=== PATIENT | female | born 1980 | race Caucasian/White ===

== ENCOUNTER 2020-12-05 12:57 | Observation (INO) | payer BC, SELFPAY ==
[2020-12-05] VITALS (15 sets, daily range): BP systolic 145–190; BP diastolic 89–110; PULSE 76–105; RESP 11–20; TEMP 36.6–36.9; O2SAT 95–100; BMI 40.3
--- NOTE | 2020-12-05 | DI.MRI.S_ITS ---
PROCEDURE: MR STROKE Pre- and post-contrast brain MRI, non-contrast brain MR angiogram, pre- and postcontrast neck MR angiogram INDICATIONS: Left sided numbness TECHNIQUE: Brain: Noncontrast axial T1 spin echo, axial T2 fast spin echo, sagittal and axial FLAIR, coronal T2 fast spin echo, axial gradient echo, axial diffusion and ADC through the brain. After the administration of contrast, axial 3D VIBE of the cranial vasculature and brain. Brain MRA: Non-contrast 3-D time of flight MR angiogram, with multiple tutbqok-ekkzpzqdi-ixvdhqiddo (MIP) reformats performed. Neck MRA: Axial and sagittal TruFISP through the neck. Coronal dynamic MR angiogram during administration of contrast in the arterial and venous phases, with 3-dimenstional raekmvo-xgefhyezc-gtvfdnkpms (MIP) reformats constructed from subtraction images. COMPARISON: [facility], CT, CT ANGIO CHEST ABDOMEN PELVIS, 12/05/2020, 14:09. [facility], CT, CT HEAD/BRAIN WO CON, 12/05/2020, 14:09. FINDINGS: Image quality: Excellent. BRAIN: CSF spaces: Ventricles are normal in size and shape. Basal cisterns are patent. No extra-axial fluid collections. Brain: No intracranial bleeds or mass effects. Castro-white matter interface is normal. Diffusion weighted images show no acute ischemic insults. Brainstem appears normal. Normal intravascular flow voids are present. No abnormal intracranial enhancement. Skull and face: Calvarial marrow signal is normal. Orbits appear normal. Sinuses: Sinuses and mastoids are clear. BRAIN MR ANGIOGRAM: Anterior circulation: Intracranial internal carotid arteries are normal in size and enhancement. The flow within the paired anterior cerebral arteries is normal and symmetric. The flow within the middle cerebral arteries is normal and symmetric. The anterior communicating artery is seen. No stenoses, occlusions, or aneurysms. Posterior circulation: The visualized portions of the vertebral arteries demonstrate normal caliber, and join to form a normal appearing basilar artery. The flow within the posterior cerebral arteries is normal and symmetric. No stenoses, occlusions, or aneurysms. NECK MR ANGIOGRAM: Carotids: Great vessels demonstrate a conventional anatomy as they arise from the aortic arch. The origins of the common carotid arteries appear patent. The calibers and courses of both common carotid arteries are normal. The bifurcation regions appear normal bilaterally. The internal carotid arteries demonstrate normal course and caliber. Posterior circulation: The origins of the vertebral arteries appear patent. More superior portions of both vertebral arteries demonstrate normal course and caliber, and join to form a normal appearing basilar artery. Miscellaneous: Subclavian arteries appear patent. Pre-contrast images through the neck show no soft tissue abnormalities. IMPRESSION: BRAIN MRI: Unremarkable. No evidence of acute stroke, hemorrhage, or mass. Normal brain parenchyma. BRAIN MR ANGIOGRAM: Unremarkable. No stenosis, aneurysm, or occlusion. NECK MR ANGIOGRAM: Unremarkable. Widely patent carotids. Dictated by: Torsten Peter M.D. on 12/05/2020 at 17:30 Approved by: Torsten Peter M.D. on 12/05/2020 at 17:34
--- NOTE | 2020-12-05 13:04 | DI.RAD.S_ITS ---
PROCEDURE: XR CHEST 1V INDICATIONS: chest pain TECHNIQUE: One view of the chest was acquired. COMPARISON: None. FINDINGS: Surgical changes and devices: None. Lungs and pleura: Lungs are clear. No pleural effusions or pneumothorax. Mediastinum: Mediastinal contours appear normal. Heart size is normal. Bones and chest wall: No suspicious bony lesions. Overlying soft tissues appear unremarkable. IMPRESSION: No acute cardiopulmonary disease. Dictated by: Cindy Retana M.D. on 12/05/2020 at 13:31 Approved by: Cindy Retana M.D. on 12/05/2020 at 13:31
[2020-12-05 13:35] LABS: Add Manual Diff / Slide Review NO; Basophils Absolute Auto 0 /uL (0-100); Basophils Percent Auto 0.6 % (0-2); Eosinophils Absolute Auto 200 /uL (0-450); Eosinophils Percent Auto 2.4 % (2-4); Hematocrit 42.7 % (36-46); Hemoglobin 14.2 g/dL (12.0-16.0); Lymphocytes Absolute Auto 2000 /uL (1100-4500); Lymphocytes Percent Auto 28.1 % (25-40); Mean Corpuscular HGB Conc 33.3 % (30-36); Mean Corpuscular Hemoglobin 28.7 PG (26-34); Mean Corpuscular Volume 86.3 fL (80-100); Monocytes Absolute Auto 600 /uL (0-900); Monocytes Percent Auto 8.6 % (3-14); Neutrophils Absolute Auto 4400 /uL (1500-7000); Neutrophils Percent Auto 60.3 % (50-75); Platelet Count 349 X10^3/uL (150-400); Red Blood Cell Count 4.94 X10^6/uL (4.0-5.2); Red Cell Distribution Width 13.3 % (11.6-14.8); White Blood Cell Count 7.3 X10^3/uL (4.5-11.0)
[2020-12-05 13:41] LABS: Prothrombin Time 10.8 SECONDS (10.1-12.7)
[2020-12-05 13:44] LABS: PTT Partial Thromboplastin Tim 33 SECONDS (26.4-36.2)
[2020-12-05 13:46] LABS: Alanine Aminotransferase 33 IU/L (<35); Albumin 4.8 g/dL (3.5-5.0); Albumin Globulin Ratio 1.3 (1.0-2.8); Alkaline Phosphatase 87 U/L (38-126); Aspartate Aminotransferase 41 IU/L (14-36); BUN Creatinine Ratio 12.5 (6-22); Bilirubin Total 0.8 mg/dL (0.2-1.3); Blood Urea Nitrogen 9 mg/dL (7-17); Calcium 9.9 mg/dL (8.4-10.2); Carbon Dioxide 26 mmol/L (22-32); Chloride 103 mmol/L (98-107); Creatine Kinase 149 U/L (30-135); Estimated Glomerular Filt Rate > 60.0 mL/min (>60); Globulin 3.7 g/dL (1.7-4.1); Glucose 97 mg/dL (70-100); HEMOLYSIS < 15 (0-50); Lipase 111 U/L (23-300); Potassium 3.7 mmol/L (3.4-5.1); Sodium 137 mmol/L (137-145); Total Protein 8.5 g/dL (6.3-8.2)
--- NOTE | 2020-12-05 13:51 | ED_ITS ---
HPI - Chest Pain General Chief Complaint: Chest Pain Stated Complaint: LEFT SIDE NUMBNESS CHEST PAIN Time Seen by Provider: 12/05/20 13:20 Source: patient Mode of arrival: Ambulatory Limitations: no limitations History of Present Illness HPI narrative: 40-year-old female smoker with newly diagnosed hypertension pres ents with a chief complaint of left-sided numbness and tingling over the past few days. She states that started in the palm of her left hand and then by the end of the day on Friday and reached her left shoulder and by the next day her entire left side was numb and tingling. She denies any weakness or pain. She denies any injury or history of the same. She denies any headache or blurred vision or trouble with speech, balance or ambulation. She states that earlier today she developed some central chest pressure and heaviness. She denies any obvious provocation, palliation or radiation of the symptoms. She worked out pretty heavy this morning and denies any exertional symptoms. She denies fever chills, shortness of breath, fatigue, nausea or vomiting. MD complaint: chest pain Onset (ago): hour(s) Duration: constant Onset: during rest Pain location: substernal Severity: moderate Quality: tightness and aching Pain radiation: none Relieving factors: nothing Treatments prior to arrival chest pain: none Related Data On Oral Contraceptives: No Allergies Allergy/AdvReac Type Severity Reaction Status Date / Time No Known Drug Allergies Allergy Verified 12/05/20 13:03 Review of Systems Constitutional Constitutional: Denies chills, Denies fatigue, Denies fever(s), Denies frequent falls, Denies lethargy and Denies weakness Eyes Eyes: Denies change in vision, Denies eye discharge, Denies irritation and Denies loss of vision ENT Ears, Nose, Mouth, and Throat: Denies change in voice, Denies dizziness, Denies neck pain, Denies sore throat and Denies throat swelling Cardiovascular Cardiovascular: Reports chest pain, Denies irregular heart rhythm, Denies lightheadedness, Denies palpitations, Denies dyspnea, Denies dyspnea on exertion and Denies orthopnea Respiratory Respiratory: Denies cough, Denies dyspnea, Denies dyspnea on exertion and Denies wheezing Gastrointestinal Gastrointestinal: Denies abdominal pain, Denies change in bowel habits, Denies diarrhea, Denies nausea and Denies vomiting Musculoskeletal Musculoskeletal: Denies neck pain and Denies numbness Integumentary/Breasts Skin/Breast: Denies pruritus, Denies erythema, Denies rash and Denies wounds Neurologic Neurologic: Denies behavioral changes, Denies confusion, Denies dizziness, Denies frequent falls, Denies loss of vision, Denies numbness, Reports sensory deficit and Denies weakness Psychiatric Psychiatric: Denies anxiety, Denies behavioral changes, Denies confusion, Denies depression, Denies homicidal ideation and Denies suicidal ideation Endocrine Endocrine: Denies fatigue, Denies flushing and Denies palpitations Hematologic/Lymphatic Hematologic/Lymphatic: Denies easy bruising Allergic/Immunologic Allergic/Immunologic: Denies urticaria, Denies throat swelling and Denies wheezing Patient History Social History Smoking Status: Current every day smoker Smoking Status: Current every day smoker alcohol intake frequency: 0-2 drinks per day Substance Use Type: does not use Exam Narrative Exam Narrative: GENERAL: [40] year old patient appears stated age. Well- nourished, well-developed patient, in mild distress. HEAD: Atraumatic. Normocephalic. EYES: Pupils equal round and reactive. Extraocular motions intact. No scleral icterus. No injection or drainage. ENT: Nose without bleeding, purulent drainage. Throat without erythema, tonsillar hypertrophy or exudate. Airway patent. NECK: Trachea midline. Non tender CARDIOVASCULAR: Regular rate and rhythm without murmurs, gallops, or rubs. RESPIRATORY: Clear to auscultation. Breath sounds equal bilaterally. No wheezes, rales, or rhonchi. GASTROINTESTINAL: Abdomen soft, non-tender, nondistended. EXTREMITIES: No edema or joint tenderness. BACK: Nontender without deformity or crepitance. No flank tenderness. NEURO: AOx3. SKIN: No rash or erythema of visible areas Initial Vital Signs Initial Vital Signs: Vital Signs Temperature 97.8 F 12/05/20 12:59 Pulse Rate 105 H 12/05/20 12:59 Respiratory Rate 18 12/05/20 12:59 Blood Pressure 190/110 H 12/05/20 12:59 Pulse Oximetry 99 12/05/20 12:59 Scores HEART Score Heart Score history: Moderately Suspicious Heart Score EKG: Non-Specific repolarization disturbance Heart Score Age: < 45 years old Heart Score risk factors: 1-2 risk factors Heart Score troponin: < or = to normal limit Heart Score Total: 3 NIH Stroke Scale Level of Conciousness: Alert, keenly responsive Ask month/age: Answers both questions correctly. Open/close eyes, close hand: Performs both tasks correctly Best gaze horizontal: Normal Visual garcia: No visual loss Facial palsy: Normal symetrical movement Left arm drift: No drift for full 10 sec Right arm drift: No drift for full 10 sec Left leg drift: No drift for full 5 sec Right leg drift: No drift for full 5 sec Limb ataxia: Absent Sensory on face/arms/legs: Mild to moderate sensory loss, can tell touch Best language: No aphasia, normal Dysarthria: Normal Extinction or inattention: No abnormality Total NIH Stroke scale score: 1 Course Orders Ordered: ED Orders 12/05/20 13:04 XR chest 1V Stat EKG-12 Lead Stat 12/05/20 13:10 Complete Blood Count AUTO DIFF Stat Comprehensive Metabolic Panel Stat Lipase Stat Partial Thromboplastin Time Stat Prothrombin Time INR Stat Troponin & CK Cardiac Panel Stat 12/05/20 13:53 CT head/brain wo con Stat 12/05/20 13:59 CT angio chest abdomen pelvis Stat 12/05/20 15:30 EKG-12 Lead Stat 12/05/20 15:37 Troponin I Stat 12/05/20 16:15 COVID19 - ADMIT (PURCHASING MANAGER swab/PCR) Stat Nitroglycerin (Nitroglycerin 0.4 Mg Sl Tab) 0.4 mg SL [id number] PRN PRN Reason: Chest Pain Last Admin: 12/05/20 15:50 Dose: 0.4 mg Documented by: Admin: 12/05/20 15:32 Dose: 0.4 mg Documented by: DION Discontinued Medications Aspirin (Aspirin 81 Mg Chew Tab) 324 mg PO NOW ONE Stop: 12/05/20 16:16 Last Admin: 12/05/20 16:30 Dose: 324 mg Documented by: Reevaluation(s) Reevaluation #1: Chest pain gone after 3rd nitro Consultations Consultation #1: Discussed case with on-call Cardiology, T-wave inversion in lead 3 can be a normal variant, however given risk factor, heart score, resolution with nitro patient requires hospitalization for further evaluation including echo and stress test. Vital Signs Vital signs: Vital Signs - 8 hr 12/05/20 12:59 12/05/20 14:33 12/05/20 14:34 Temperature 97.8 F Pulse Rate 105 H 91 H 90 Respiratory Rate 18 Blood Pressure 190/110 H 153/100 H Pulse Oximetry 99 97 96 12/05/20 15:00 12/05/20 15:30 12/05/20 15:32 Temperature Pulse Rate 83 85 86 Respiratory Rate Blood Pressure 150/95 H 158/99 H 158/99 H Pulse Oximetry 98 98 12/05/20 15:40 12/05/20 15:50 12/05/20 16:00 Temperature Pulse Rate 96 H 82 95 H Respiratory Rate 11 L 16 13 Blood Pressure 151/91 H 146/93 H 145/92 H Pulse Oximetry 95 99 96 MDM - Chest Pain Lab Data Result diagrams: 12/05/20 13:10 12/05/20 13:10 Labs: Lab Results 12/05/20 12/05/20 12/05/20 Range/Units 13:10 13:10 13:10 WBC 7.3 (4.5-11.0) X10^3/uL RBC 4.94 (4.0-5.2) X10^6/uL Hgb 14.2 (12.0-16.0) g/dL Hct 42.7 (36-46) % MCV 86.3 (80-100) fL MCH 28.7 (26-34) PG MCHC 33.3 (30-36) % RDW 13.3 (11.6-14.8) % Plt Count 349 (150-400) X10^3/uL Neut % (Auto) 60.3 (50-75) % Lymph % (Auto) 28.1 (25-40) % [place] % (Auto) 8.6 (3-14) % Eos % (Auto) 2.4 (2-4) % Baso % (Auto) 0.6 (0-2) % Neut # (Auto) 4400 (5160-3043) /uL Lymph # (Auto) 2000 (3529-3850) /uL [place] # (Auto) 600 (0-900) /uL Eos # (Auto) 200 (0-450) /uL Baso # (Auto) 0 (0-100) /uL PT 10.8 (10.1-12.7) SECONDS INR 1.0 (0.9-1.3) APTT 33 (26.4-36.2) SECONDS Sodium 137 (137-145) mmol/L Potassium 3.7 (3.4-5.1) mmol/L Chloride 103 (98-107) mmol/L Carbon Dioxide 26 (22-32) mmol/L BUN 9 (7-17) mg/dL Creatinine 0.72 (0.52-1.04) mg/dL Estimated GFR > 60.0 (>60) mL/min BUN/Creatinine Ratio 12.5 (6-22) Glucose 97 (70-100) mg/dL Calcium 9.9 (8.4-10.2) mg/dL Total Bilirubin 0.8 (0.2-1.3) mg/dL AST 41 H (14-36) IU/L ALT 33 (<35) IU/L Alkaline Phosphatase 87 (38-126) U/L Total Creatine Kinase 149 H (30-135) U/L CK-MB (CK-2) 0.62 (<2.37) ng/mL CK-MB (CK-2) Rel Index 0.4 L (1.5-5.0) % Troponin I < 0.012 (0.01-0.034) ng/mL Total Protein 8.5 H (6.3-8.2) g/dL Albumin 4.8 (3.5-5.0) g/dL Globulin 3.7 (1.7-4.1) g/dL Albumin/Globulin Ratio 1.3 (1.0-2.8) Lipase 111 (23-300) U/L // Range/Units 15:37 WBC (4.5-11.0) X10^3/uL RBC (4.0-5.2) X10^6/uL Hgb (12.0-16.0) g/dL Hct (36-46) % MCV (80-100) fL MCH (26-34) PG MCHC (30-36) % RDW (11.6-14.8) % Plt Count (150-400) X10^3/uL Neut % (Auto) (50-75) % Lymph % (Auto) (25-40) % [place] % (Auto) (3-14) % Eos % (Auto) (2-4) % Baso % (Auto) (0-2) % Neut # (Auto) (9400-2821) /uL Lymph # (Auto) (2767-0572) /uL [place] # (Auto) (0-900) /uL Eos # (Auto) (0-450) /uL Baso # (Auto) (0-100) /uL PT (10.1-12.7) SECONDS INR (0.9-1.3) APTT (26.4-36.2) SECONDS Sodium (137-145) mmol/L Potassium (3.4-5.1) mmol/L Chloride (98-107) mmol/L Carbon Dioxide (22-32) mmol/L BUN (7-17) mg/dL Creatinine (0.52-1.04) mg/dL Estimated GFR (>60) mL/min BUN/Creatinine Ratio (6-22) Glucose (70-100) mg/dL Calcium (8.4-10.2) mg/dL Total Bilirubin (0.2-1.3) mg/dL AST (14-36) IU/L ALT (<35) IU/L Alkaline Phosphatase (38-126) U/L Total Creatine Kinase (30-135) U/L CK-MB (CK-2) (<2.37) ng/mL CK-MB (CK-2) Rel Index (1.5-5.0) % Troponin I < 0.012 (0.01-0.034) ng/mL Total Protein (6.3-8.2) g/dL Albumin (3.5-5.0) g/dL Globulin (1.7-4.1) g/dL Albumin/Globulin Ratio (1.0-2.8) Lipase (23-300) U/L Imaging Data CT scan - head: Radiologist's Impression: [address] [id number] Scan ReportSigned Patient: Radha Chu KMR#: [id number]: 1980Acct:[id number]/Sex: 40 / FDate of Service: 12/05/20Loc: EDAccession Number: [id number] Procedure: CT head/brain wo con Ordering Provider: Bijan Wood D.O. PROCEDURE: CT HEAD/BRAIN WO CON INDICATIONS: left side numbness TECHNIQUE: Noncontrast 4.5 mm thick angled axial sections acquired from the foramen magnum to the vertex, with coronal and sagittal reformats. For radiation dose reduction, the following was used: automated exposure control, adjustment of mA and/or kV according to patient size. COMPARISON: None. FINDINGS: Image quality: Excellent. CSF spaces: Basal cisterns are patent. No extra-axial fluid collections. Ventricles are normal in size and shape. Brain: No midline shift. No intracranial masses or hemorrhage. Castro-white matter interface is normal. Skull and face: Calvarium and visualized facial bones are intact, without suspicious lesions. Sinuses: Visualized sinuses and mastoids are clear. IMPRESSION: 1. No acute intracranial abnormalities. Dictated by: Cindy Retana M.D. on 12/05/2020 at 14:39 Approved by: Cindy Retana M.D. on 12/05/2020 at 14:40 CT scan - chest: Radiologist's Impression: 46 Bijan Wood DO Find Patient Imaging - Radha Chu Jatinder 40 F 1980 ACTIVITY DATE EXAM STATUS AUTHOR 12/05/20 13:59 Signed Fred Pavon 12/05/20 13:53 Signed Jinny Retana 12/05/20 13:04 Signed Jinny Retana [address] [id number] Scan ReportSigned Patient: Radha Chu KMR#: [id number]: 1980Acct:[id number]/Sex: 40 / FDate of Service: 12/05/20Loc: EDAccession Number: [id number] Procedure: CT angio chest abdomen pelvis Ordering Provider: Bijan Wood D.O. PROCEDURE: CT ANGIO CHEST ABDOMEN PELVIS INDICATIONS: back pain TECHNIQUE: Precontrast 5 mm thick sections acquired from the lung apices to the iliac crests. After the administration of intravenous contrast, 2.5 mm thick sections again acquired from the lung apices to the iliac crests. Maximum intensity projection (MIP) oblique sag ittal and coronal reformats were then acquired. For radiation dose reduction, the following was used: automated exposure control. COMPARISON: [facility], CR, XR CHEST 1V, 12/05/2020, 13:20. FINDINGS: Image quality: Good. AORTA: No acute aortic syndrome. No dissection. No aneurysm. CHEST: Lungs and pleura: Subtle bilateral ground-glass opacity. No pleural effusions or pneumothorax. Central and peripheral airways are patent and normal in caliber. Mediastinum: Heart size is normal. No pericardial effusion. No mediastinal or hilar adenopathy by size criteria. Central pulmonary arteries are normal in size. Esophagus is normal in caliber. No hiatal hernias. Bones and chest wall: No axillary adenopathy by size criteria. Thyroid gland is unremarkable. No suspicious bony lesions. No vertebral body compression fractures. ABDOMEN: Vasculature: Celiac trunk and mesenteric arteries are patent. Renal arteries are also patent. Solid organs: Liver is normal in size and enhancement. Gallbladder is unremarkable. Biliary system is non dilated. Pancreas enhances normally. Spleen is normal in size and enhancement. No adrenal nodules. Both kidneys are normal in size and enhancement, without hydronephrosis. Peritoneum and bowel: No free fluid or air. Bowel loops are normal in caliber and wall thickness. Normal appendix. Nodes and vessels: No retroperitoneal or mesenteric adenopathy by size criteria. Inferior vena cava is normal in morphology. Miscellaneous: Tiny fat containing periumbilical hernia. PELVIS: Genitourinary: Bladder wall thickness is normal. IUD centered in the pelvis. Miscellaneous: No inguinal hernias or adenopathy. No ventral hernias. Bones: No suspicious bony lesions. No vertebral body compression fractures. IMPRESSION: 1. No acute aortic syndrome. No dissection. No aneurysm. 2. The subtle ground-glass airspace opacity bilaterally. Portion of this opacity could be due to respiratory motion. This raises the possibility of infectious/inflammatory etiology. This could be due to atelectasis. 3. No free fluid in the abdomen or pelvis. Dictated by: Fred Pavon M.D. on 12/05/2020 at 15:22 Approved by: Fred Pavon M.D. on 12/05/2020 at 15:32 Discharge Plan Departure Admit Date/Time: 12/05/20 16:24 Admit Provider: Fredis Carballo
[2020-12-05 13:58] LABS: Troponin I < 0.012 ng/mL (0.01-0.034)
--- NOTE | 2020-12-05 13:59 | DI.CT.S_ITS ---
PROCEDURE: CT ANGIO CHEST ABDOMEN PELVIS INDICATIONS: back pain TECHNIQUE: Precontrast 5 mm thick sections acquired from the lung apices to the iliac crests. After the administration of intravenous contrast, 2.5 mm thick sections again acquired from the lung apices to the iliac crests. Maximum intensity projection (MIP) oblique sagittal and coronal reformats were then acquired. For radiation dose reduction, the following was used: automated exposure control. COMPARISON: [facility], CR, XR CHEST 1V, 12/05/2020, 13:20. FINDINGS: Image quality: Good. AORTA: No acute aortic syndrome. No dissection. No aneurysm. CHEST: Lungs and pleura: Subtle bilateral ground-glass opacity. No pleural effusions or pneumothorax. Central and peripheral airways are patent and normal in caliber. Mediastinum: Heart size is normal. No pericardial effusion. No mediastinal or hilar adenopathy by size criteria. Central pulmonary arteries are normal in size. Esophagus is normal in caliber. No hiatal hernias. Bones and chest wall: No axillary adenopathy by size criteria. Thyroid gland is unremarkable. No suspicious bony lesions. No vertebral body compression fractures. ABDOMEN: Vasculature: Celiac trunk and mesenteric arteries are patent. Renal arteries are also patent. Solid organs: Liver is normal in size and enhancement. Gallbladder is unremarkable. Biliary system is non dilated. Pancreas enhances normally. Spleen is normal in size and enhancement. No adrenal nodules. Both kidneys are normal in size and enhancement, without hydronephrosis. Peritoneum and bowel: No free fluid or air. Bowel loops are normal in caliber and wall thickness. Normal appendix. Nodes and vessels: No retroperitoneal or mesenteric adenopathy by size criteria. Inferior vena cava is normal in morphology. Miscellaneous: Tiny fat containing periumbilical hernia. PELVIS: Genitourinary: Bladder wall thickness is normal. IUD centered in the pelvis. Miscellaneous: No inguinal hernias or adenopathy. No ventral hernias. Bones: No suspicious bony lesions. No vertebral body compression fractures. IMPRESSION: 1. No acute aortic syndrome. No dissection. No aneurysm. 2. The subtle ground-glass airspace opacity bilaterally. Portion of this opacity could be due to respiratory motion. This raises the possibility of infectious/inflammatory etiology. This could be due to atelectasis. 3. No free fluid in the abdomen or pelvis. Dictated by: Fred Pavon M.D. on 12/05/2020 at 15:22 Approved by: Fred Pavon M.D. on 12/05/2020 at 15:32
[2020-12-05 14:01] LABS: CKMB % Relative Index 0.4 % (1.5-5.0); Creatine Kinase MB 0.62 ng/mL (<2.37)
--- NOTE | 2020-12-05 15:26 | PC.NURSE ---
Pt is also c/o L sided numbness to her whole body. States she can feel pressure but not temperature or sharp sensations.
[2020-12-05] MEDS: NITROGLYCERIN 0.4 MG SL TAB SL ×2 (15:32→15:50)
--- NOTE | 2020-12-05 16:05 | PC.NURSE ---
Pt states that her CP is gone and only feels a slight pressure now. BP stable. Does have an intense headache. Will stop the nitro at 2 tabs. informed.
[2020-12-05 16:14] LABS: Troponin I < 0.012 ng/mL (0.01-0.034)
[2020-12-05] MEDS: ASPIRIN 81 MG CHEW TAB 324 MG PO (16:30)
--- NOTE | 2020-12-05 16:36 | DI.ECHO.S_ITS ---
[facility] +---------+ : : [address] : : : : [id number] : : : : Phone: [phone]+ Echocardiogram Report + + :Name: ARTURO OLVERA Study Date: 12/06/2020 Height: 64 in : :[facility] ReadingLocation: Weight: 235 lb : : Gender: Female BSA: 2.1 m2 : :: 1980 Age: 40 yrs BP: 136/81 mmHg: :Reason For Study: CHEST PAIN, POSSIBLE TIA/CVA : :Ordering Physician: GRAYSON, : :EPIFANIO JACKSON Performed By: Cherri Domínguez : :Referring: EPIFANIO GALICIA : + + Interpretation Summary 1) Normal left ventricular thickness, size, wall motion, and systolic function (EF 60-65%). 2) Mildly enlarged right ventricular size with normal function. 3) No significant valvular abnormalities. 4) Injection of contrast documented no interatrial shunt. 5) No prior Echo available for comparison. Procedure: A two-dimensional transthoracic echocardiogram with color flow and Doppler was performed. The study quality was technically adequate. There is no prior echocardiogram noted for this patient. The patient was in sinus rhythm with heart rates between 60-76 bpm during the exam. Left Ventricle: The left ventricle is normal in size. There is normal left ventricular wall thickness. Proximal septal thickening is noted. The ejection fraction is estimated to be 60-65%. Left ventricular wall motion is normal. Right Ventricle: The right ventricle is mildly dilated. The right ventricular systolic function is normal. Atria: The left atrial size is normal. Right atrial size is normal. There is no Doppler evidence for an interatrial shunt. Injection of contrast documented no interatrial shunt. Mitral Valve: The mitral valve is normal in structure and function. There is trace mitral regurgitation. Aortic Valve: The aortic valve opens well. There is no aortic valve stenosis. No aortic regurgitation is present. Tricuspid Valve: The tricuspid valve is normal in structure and function. There is mild tricuspid regurgitation. The right ventricular systolic pressure is estimated to be at least 23 mmHg based on an estimated right atrial pressure of 3 mm Hg. Pulmonic Valve: The pulmonic valve is not well visualized. There is no pulmonic valvular regurgitation. Great Vessels: The aortic root is normal size. The dimensions of the ascending aorta are normal. The IVC is of normal diameter and collapses greater than 50% with a sniff. This suggests a low right atrial pressure of 3 mm Hg. Pericardium/ Pleura There is no pericardial effusion. There is no pleural effusion. MMode/2D Measurements & Calculations LVIDd: 4.8 cm LVOT diam: 1.9 cm LVIDs: 3.4 cm Ao root diam: 3.2 cm FS: 28.6 % asc Aorta Diam: 3.2 cm EPSS: 0.55 cm Ao Arch Diam (Prox Trans): 2.6 cm IVSd: 1.2 cm LVPWd: 0.75 cm LV anne. diameter/BSA (cm/m^2): 2.3 LV sys. diameter/BSA (cm/m^2): 1.6 LA A2 area: 20.5 cm2 RA long axis: 5.3 cm LA A4 area: 17.7 cm2 RA area: 14.7 cm2 LA length (vol): 5.8 cm RA vol: 34.7 ml LA vol: 53.5 ml RA : 16.5 ml/m2 LA vol index: 25.5 ml/m2 IVC diam: 1.9 cm RVD1 (basal): 3.6 cm TAPSE: 1.8 cm Doppler Measurements & Calculations Ao V2 max: 116.0 cm/sec LVOT Max Ganesh: 89.6 cm/sec Ao V2 mean: 82.8 cm/sec LV V1 max P.2 mmHg Ao max P.4 mmHg LV V1 VTI: 19.4 cm Ao mean P.0 mmHg PATRICK(I,D): 2.2 cm2 Ao V2 VTI: 24.9 cm PATRICK(V,D): 2.1 cm2 sev ratio: 0.78 PATRICK indexed to BSA (cm^2/m^2): 1.0 MV E max ganesh: 65.0 cm/sec TR max ganesh: 223.4 cm/sec MV A max ganesh: 48.1 cm/sec TR max P.0 mmHg MV E/A: 1.4 PA V2 max: 69.9 cm/sec Med Peak E' Ganesh: 7.4 cm/sec PA V2 mean: 46.1 cm/sec E/E' med: 8.7 PA mean P.97 mmHg Lat Peak E' Ganesh: 12.3 cm/sec PA pr(Accel): 37.9 mmHg E/E' lat: 5.3 E/e' average: 7.0 MV dec time: 0.17 sec SV(LVOT): 53.8 ml Reading Physician:10:48 AM
[2020-12-05 17:51] LABS: COVID19 - ADMIT (NP swab/PCR) Negative (Negative)
--- NOTE | 2020-12-05 17:55 | P.HP_ITS ---
History of Present Illness History of Present Illness Date Patient Seen: 12/05/20 Time Patient Seen: 17:55 Chief complaint: LEFT SIDE NUMBNESS CHEST PAIN Narrative: This is a 40-year-old female with a past history of tobacco use (0.5 ppd x 25 years) and anxiety who presented with left-sided numbness and chest pain. Patient states that she had left-sided numbness starting a couple of days ago. It started in the palm of her hand and then traveled up her arm. She reports decreased sensation and tingling. The following day it involved her entire left side including her chest and back as well as her legs. She notes it improves at the midline. She reports no pain, no trauma and no weakness. She denies any palpitations, headache, vision changes, fevers, chills, slurred speech, falls, dizziness, urinary or bladder incontinence, nausea, vomiting, diaphoresis. Starting at around 1:00 p.m. today she developed a substernal chest pressure, 3 to 4/10, with later migration into her upper chest and neck. This resolved with nitroglycerin in the emergency room. She actually did a a heavy workout this morning and denies any exertional symptoms or chest pain. She has no orthopnea, lower extremity edema. Nothing seems to make her symptoms better or worse other than the nitro in the ER for chest pain. In the emergency room, the patient was hypertensive with a blood pressure of 190/110, this improved without medications to the 140s systolic. She was bord mirna tachycardic but the remainder of her vital signs were unremarkable. Initial CBC was unremarkable, she had normal coagulation studies, CMP showed a mild elevation in AST at 41, and mildly elevated CK at 149, but was otherwise unremarkable including a negative troponin and normal TSH at 1.3. COVID-[address] was unremarkable. Chest x-ray was unremarkable. CT angiogram of her chest and abdomen pelvis showed no acute abnormalities. EKG showed nonspecific T-wave inversion in leads III and AVF. Prior to arrival on the floor patient went for her MRI stroke protocol which also showed no acute abnormalities. Patient History Medical History (Updated 12/05/20 @ 18:08 by Fredis Carballo DO) Anxiety Surgical History (Updated 12/05/20 @ 18:08 by Fredis Carballo DO) H/O shoulder surgery Family & Social History Family History (Updated 12/05/20 @ 18:08 by Fredis Carballo DO) Father Hyperlipidemia Hypertension Mother Hyperlipidemia Hypertension Safety & Behavioral: Feels Safe in Current Yes Environment Been Physically Hurt or No Threatened By a Person Tobacco & Substance use: Smoking Status Current every day smoker alcohol intake frequency 0-2 drinks per day Substance Use Type does not use Meds Home Medications and Allergies Home Medications Medication Instructions Recorded Confirmed Type duloxetine 40 mg PO DAILY 12/05/20 12/05/20 History Allergies Allergy/AdvReac Type Severity Reaction Status Date / Time No Known Drug Allergies Allergy Verified 12/05/20 13:03 Review of Systems Review of Systems Narrative: All other systems reviewed with the patient and are negative unless otherwise stated. Exam Vital Signs (past 8 hours): - 12/05/20 12:59 12/05/20 14:33 12/05/20 14:34 Temperature 97.8 F Pulse Rate 105 H 91 H 90 Respiratory Rate 18 Blood Pressure 190/110 H 153/100 H Pulse Oximetry 99 97 96 12/05/20 15:00 12/05/20 15:30 12/05/20 15:32 Temperature Pulse Rate 83 85 86 Respiratory Rate Blood Pressure 150/95 H 158/99 H 158/99 H Pulse Oximetry 98 98 12/05/20 15:40 12/05/20 15:50 12/05/20 16:00 Temperature Pulse Rate 96 H 82 95 H Respiratory Rate 11 L 16 13 Blood Pressure 151/91 H 146/93 H 145/92 H Pulse Oximetry 95 99 96 12/05/20 16:10 12/05/20 16:20 12/05/20 16:30 Temperature Pulse Rate 91 H 90 99 H Respiratory Rate 13 20 Blood Pressure 153/89 H 149/97 H 164/104 H Pulse Oximetry 96 100 99 Oxygen Delivery Method Room Air Narrative Exam Narrative: GENERAL APPEARANCE: Well developed, well nourished, in no acute distress. SKIN: Inspection of the skin reveals no rashes, ulcerations or petechiae. HEENT: Normocephalic atraumatic, extraocular muscles are intact, oropharynx is clear and mucous membranes are moist, neck is supple without adenopathy NECK: Supple and symmetric. There was no thyroid enlargement, and no tenderness, or masses were felt. CHEST: Normal AP diameter and normal contour without any kyphoscoliosis. LUNGS: Auscultation of the lungs revealed no wheezes, rhonchi, or rales. CARDIOVASCULAR: There was a regular rate and rhythm without any murmurs, gallops, rubs. Peripheral pulses were 2+ and symmetric. ABDOMEN: Soft, nondistended, and nontender. MUSCULOSKELETAL: There was no tenderness or effusions noted. Muscle strength and tone were normal. EXTREMITIES: No cyanosis, clubbing or edema. NEUROLOGIC: Alert and oriented x 3. Normal affect. Strength is +5/5 in the Upper Extremities and Lower Extremities Bilaterally. NIH stroke scale is documented below. Sensation was reported to be diminished to sharp in her left side only this includes her arm, leg, torso, and back. Reports diminished sensation to light touch as well, but not to the degree of sharp. Pressure sensation also feels different but less so. Objective ECG Impression: Sinus rhythm with no significant ST changes but there are T-wave inversions in lead III and AVF Imaging CT scan - chest: Radiologist's impression: PROCEDURE: CT ANGIO CHEST ABDOMEN PELVIS INDICATIONS: back pain TECHNIQUE: Precontrast 5 mm thick sections acquired from the lung apices to the iliac crests. After the administration of intravenous contrast, 2.5 mm thick sections again acquired from the lung apices to the iliac crests. Maximum intensity projection (MIP) oblique sagittal and coronal reformats were then acquired. For radiation dose reduction, the following was used: automated exposure control. COMPARISON: [facility], CR, XR CHEST 1V, 12/05/2020, 13:20. FINDINGS: Image quality: Good. AORTA: No acute aortic syndrome. No dissection. No aneurysm. CHEST: Lungs and pleura: Subtle bilateral ground-glass opacity. No pleural effusions or pneumothorax. Central and peripheral airways are patent and normal in caliber. Mediastinum: Heart size is normal. No pericardial effusion. No mediastinal or hilar adenopathy by size criteria. Central pulmonary arteries are normal in size. Esophagus is normal in caliber. No hiatal hernias. Bones and chest wall: No axillary adenopathy by size criteria. Thyroid gland is unremarkable. No suspicious bony lesions. No vertebral body compression frac tures. ABDOMEN: Vasculature: Celiac trunk and mesenteric arteries are patent. Renal arteries are also patent. Solid organs: Liver is normal in size and enhancement. Gallbladder is unremar kable. Biliary system is non dilated. Pancreas enhances normally. Spleen is normal in size and enhancement. No adrenal nodules. Both kidneys are normal in size and enhancement, without hydronephrosis. Peritoneum and bowel: No free fluid or air. Bowel loops are normal in caliber and wall thickness. Normal appendix. Nodes and vessels: No retroperitoneal or mesenteric adenopathy by size criteria. Inferior vena cava is normal in morphology. Miscellaneous: Tiny fat containing periumbilical hernia. PELVIS: Genitourinary: Bladder wall thickness is normal. IUD centered in the pelvis. Miscellaneous: No inguinal hernias or adenopathy. No ventral hernias. Bones: No suspicious bony lesions. No vertebral body compression fractures. IMPRESSION: 1. No acute aortic syndrome. No dissection. No aneurysm. 2. The subtle ground-glass airspace opacity bilaterally. Portion of this opacity could be due to respiratory motion. This raises the possibility of inf ectious/inflammatory etiology. This could be due to atelectasis. 3. No free fluid in the abdomen or pelvis. MRI - head: Radiologist's impression: PROCEDURE: MR STROKE Pre- and post-contrast brain MRI, non-contrast brain MR angiogram, pre- and postcontrast neck MR angiogram INDICATIONS: Left sided numbness TECHNIQUE: Brain: Noncontrast axial T1 spin echo, axial T2 fast spin echo, sagittal and axial FLAIR, coronal T2 fast spin echo, axial gradient echo, axial diffusion and ADC through the brain. After the administration of contrast, axial 3D VIBE of the cranial vasculature and brain. Brain MRA: Non-contrast 3-D time of flight MR angiogram, with multiple cjfsxwr-hopcbjaca-xjyptfmqcm (MIP) reformats performed. Neck MRA: Axial and sagittal TruFISP through the neck. Coronal dynamic MR angiogram during administration of contrast in the arterial and venous phases, with 3- dimenstional cmtmmel-vazkanqkz-opjflqytab (MIP) reformats constructed from subtraction images. COMPARISON: [facility], CT, CT ANGIO CHEST ABDOMEN PELVIS, 12/05/2020, 14:09. [facility], CT, CT HEAD/BRAIN WO CON, 12/05/2020, 14:09. FINDINGS: Image quality: Excellent. BRAIN: CSF spaces: Ventricles are normal in size and shape. Basal cisterns are patent. No extra-axial fluid collections. Brain: No intracranial bleeds or mass effects. Castro-white matter interface is normal. Diffusion weighted images show no acute ischemic insults. Brainstem appears normal. Normal intravascular flow voids are present. No abnormal intracranial enhancement. Skull and face: Calvarial marrow signal is normal. Orbits appear normal. Sinuses: Sinuses and mastoids are clear. BRAIN MR ANGIOGRAM: Anterior circulation: Intracranial internal carotid arteries are normal in size and enhancement. The flow within the paired anterior cerebral arteries is normal and symmetric. The flow within the middle cerebral arteries is normal and symmetric. The anterior communicating artery is seen. No stenoses, occlusions, or aneurysms. Posterior circulation: The visualized portions of the vertebral arteries demonstrate normal caliber, and join to form a normal appearing basilar artery. The flow within the posterior cerebral arteries is normal and symmetric. No stenoses, occlusions, or aneurysms. NECK MR ANGIOGRAM: Carotids: Great vessels demonstrate a conventional anatomy as they arise from the aortic arch. The origins of the common carotid arteries appear patent. The calibers and courses of both common carotid arteries are normal. The bifurcation regions appear normal bilaterally. The internal carotid arteries demonstrate normal course and caliber. Posterior circulation: The origins of the vertebral arteries appear patent. More superior portions of both vertebral arteries demonstrate normal course and caliber, and join to form a normal appearing basilar artery. Miscellaneous: Subclavian arteries appear patent. Pre-contrast images through the neck show no soft tissue abnormalities. IMPRESSION: BRAIN MRI: Unremarkable. No evidence of acute stroke, hemorrhage, or mass. Normal brain parenchyma. BRAIN MR ANGIOGRAM: Unremarkable. No stenosis, aneurysm, or occlusion. NECK MR ANGIOGRAM: Unremarkable. Widely patent carotids. Labs Result Diagrams: 12/05/20 13:10 12/05/20 13:10 Labs: Laboratory Results - last 24 hr 12/05/20 12/05/20 12/05/20 13:10 13:10 13:10 WBC 7.3 RBC 4.94 Hgb 14.2 Hct 42.7 MCV 86.3 MCH 28.7 MCHC 33.3 RDW 13.3 Plt Count 349 Neut % (Auto) 60.3 Lymph % (Auto) 28.1 Luna % (Auto) 8.6 Eos % (Auto) 2.4 Baso % (Auto) 0.6 Neut # (Auto) 4400 Lymph # (Auto) 2000 Luna # (Auto) 600 Eos # (Auto) 200 Baso # (Auto) 0 PT 10.8 INR 1.0 APTT 33 Sodium 137 Potassium 3.7 Chloride 103 Carbon Dioxide 26 BUN 9 Creatinine 0.72 Estimated GFR > 60.0 BUN/Creatinine Ratio 12.5 Glucose 97 Calcium 9.9 Total Bilirubin 0.8 AST 41 H ALT 33 Alkaline Phosphatase 87 Total Creatine Kinase 149 H CK-MB (CK-2) 0.62 CK-MB (CK-2) Rel Index 0.4 L Troponin I < 0.012 Total Protein 8.5 H Albumin 4.8 Globulin 3.7 Albumin/Globulin Ratio 1.3 Lipase 111 TSH SARS-CoV-2 (PCR) 12/05/20 12/05/20 12/05/20 13:10 15:37 16:34 WBC RBC Hgb Hct MCV MCH MCHC RDW Plt Count Neut % (Auto) Lymph % (Auto) Luna % (Auto) Eos % (Auto) Baso % (Auto) Neut # (Auto) Lymph # (Auto) Luna # (Auto) Eos # (Auto) Baso # (Auto) PT INR APTT Sodium Potassium Chloride Carbon Dioxide BUN Creatinine Estimated GFR BUN/Creatinine Ratio Glucose Calcium Total Bilirubin AST ALT Alkaline Phosphatase Total Creatine Kinase CK-MB (CK-2) CK-MB (CK-2) Rel Index Troponin I < 0.012 Total Protein Albumin Globulin Albumin/Globulin Ratio Lipase TSH 1.30 SARS-CoV-2 (PCR) Negative Assessment & Plan Assessment & Plan narrative: This is a 40-year-old female with a past history of tobacco use (0.5 ppd x 25 years) and anxiety who presented with left-sided numbness and chest pain, admitted to Medicine for further observation and evaluation of these presenting symptoms. 1. Chest pain, acute, present on admission, improved - HEART score of 4 based on history, EKG, and risk factors including obesity, HTN, and smoking. - TTE and stress testing ordered. EKG with inverted T waves in III, avf. Will repeat 8 hour troponin to r/o atypical presentation of ACS. - CT angio negative for dissection. - continue telemetery. - TSH unremarkable. Further risk stratify with A1c and fasting lipid panel. 2. Left sided numbness, acute, present on admission - unclear etiology at this time and distribution of symptoms is atypical. MRI negative for acute infarcts, differentials include hypertension related symptoms, unknown peripheral neuropahty, or somatization. GBS not likely given no weakness. No significant bony abnormalities or spinal issues on CT imaging. - further consideration was given to electrolyte abnormalities but these are unremarkable. - If continued symptoms after treatment of BP and chest pain evaluation, would recommend outpatient neurology evaluation. 3. Elevated blood pressure without a diagnosis of hypertension - likely represents previously undiagnosed HTN, will start lisinopril 10 mg. 4. Tobacco use, present on admission - encouraged smoking cessation, nicotine patch if desired. 5. Anxiety, chronic - continue home medications. Code: Full as discussed with the patient Dispo: Admitted under observation status as her stay is not expected to exceed 2 midnights Scores NIHSS Level of Conciousness: Alert, keenly responsive Ask month/age: Answers both questions correctly. Open/close eyes, close hand: Performs both tasks correctly Best gaze horizontal: Normal Visual garcia: No visual loss Facial palsy: Normal symetrical movement Left arm drift: No drift for full 10 sec Right arm drift: No drift for full 10 sec Left leg drift: No drift for full 5 sec Right leg drift: No drift for full 5 sec Limb ataxia: Absent Sensory on face/arms/legs: Mild to moderate sensory loss, can tell touch Best language: No aphasia, normal Dysarthria: Normal Extinction or inattention: No abnormality Total NIH Stroke scale score: 1
[2020-12-05 18:12] LABS: Magnesium 2.3 mg/dL (1.6-2.3); Phosphorous 2.7 mg/dL (2.5-4.5)
[2020-12-05] MEDS: lisinopriL 10 MG TABLET PO (19:22)
[2020-12-05] MEDS: ACETAMINOPHEN 325 MG TABLET 975 MG PO (21:08)
[2020-12-05 21:30] LABS: Troponin I < 0.012 ng/mL (0.01-0.034)
--- NOTE | 2020-12-05 23:20 | PC.ADMIT ---
[facility] Admission Note: The patient,Radha Chu,40 y/o, was given written information regarding hospital policies, unit procedures and contact persons. Patient's smoking status: Current every day smoker. Vital Signs - 8 hr 12/05/20 15:30 12/05/20 15:32 12/05/20 15:40 Temperature Pulse Rate 85 86 96 H Respiratory Rate 11 L Blood Pressure 158/99 H 158/99 H 151/91 H Pulse Oximetry 98 95 12/05/20 15:50 12/05/20 16:00 12/05/20 16:10 Temperature Pulse Rate 82 95 H 91 H Respiratory Rate 16 13 Blood Pressure 146/93 H 145/92 H 153/89 H Pulse Oximetry 99 96 96 12/05/20 16:20 12/05/20 16:30 12/05/20 18:05 Temperature 98.5 F Pulse Rate 90 99 H 79 Respiratory Rate 13 20 16 Blood Pressure 149/97 H 164/104 H 151/108 H Pulse Oximetry 100 99 99 12/05/20 19:22 12/05/20 20:04 Temperature 98.1 F Pulse Rate 99 H 76 Respiratory Rate 17 Blood Pressure 151/108 H 148/98 H Pulse Oximetry 96 Patient admitted to floor from ED for observation under hospitalists care. Patient reports a numbness on right upper body for several days and developed chest pressure today which prompted her to come to the ED. She is not having any chest pain since receiving nitro in ED. Patient's BP elevated, started on lisinopril. Tele monitor on, NSR. A/Ox4, RA. Only complaint is of a headache. Patient is ambulatory, able to use call light and make needs known.
[2020-12-06] VITALS (9 sets, daily range): BP systolic 120–138; BP diastolic 76–82; PULSE 73–85; RESP 15–17; TEMP 36.2–37.1; O2SAT 96–100
[2020-12-06 05:25] LABS: Add Manual Diff / Slide Review NO; Basophils Absolute Auto 0 /uL (0-100); Basophils Percent Auto 0.7 % (0-2); Eosinophils Absolute Auto 300 /uL (0-450); Eosinophils Percent Auto 4.4 % (2-4); Hematocrit 41.7 % (36-46); Hemoglobin 14.3 g/dL (12.0-16.0); Lymphocytes Absolute Auto 2700 /uL (1100-4500); Lymphocytes Percent Auto 40.8 % (25-40); Mean Corpuscular HGB Conc 34.2 % (30-36); Mean Corpuscular Hemoglobin 29.4 PG (26-34); Mean Corpuscular Volume 85.9 fL (80-100); Monocytes Absolute Auto 700 /uL (0-900); Neutrophils Absolute Auto 2900 /uL (1500-7000); Neutrophils Percent Auto 44.1 % (50-75); Platelet Count 318 X10^3/uL (150-400); Red Blood Cell Count 4.85 X10^6/uL (4.0-5.2); White Blood Cell Count 6.6 X10^3/uL (4.5-11.0)
[2020-12-06 05:35] LABS: BUN Creatinine Ratio 14.1 (6-22); Blood Urea Nitrogen 12 mg/dL (7-17); Calcium 9.4 mg/dL (8.4-10.2); Carbon Dioxide 28 mmol/L (22-32); Chloride 103 mmol/L (98-107); Cholesterol 267 mg/dL (140-199); Estimated Glomerular Filt Rate > 60.0 mL/min (>60); Glucose 103 mg/dL (70-100); HDL Cholesterol 34 mg/dL (40-60); HEMOLYSIS < 15 (0-50); LDL Cholesterol Calculated 182 mg/dL (<100); Magnesium 2.1 mg/dL (1.6-2.3); Potassium 3.9 mmol/L (3.4-5.1); Sodium 137 mmol/L (137-145); Triglycerides 254 mg/dL (35-150)
[2020-12-06 05:45] LABS: Hemoglobin A1C% w Est Avg Glu 4.8 % (4.0-6.0)
--- NOTE | 2020-12-06 06:17 | PC.NURSE ---
Degreaser Note-Patient slept throughout the night without c/o chest pain or pressure, still has little numbness to LUE, LLE, and Lt torso, but is better. SR on telemetry, BP 120/76 in am, denies headache. NPO for NM perfusion test today.
[2020-12-06] MEDS: ACETAMINOPHEN 325 MG TABLET 975 MG PO ×2 (06:40→12:29)
--- NOTE | 2020-12-06 08:19 | PC.NURSE ---
Addendum entered by Hellen Martinez R.N. 12/06/20 12:44: 1244-Pt off unit to do stress test Addendum entered by Hellen Martinez R.N. 12/06/20 12:30: APAP for [facility]. Original Note: AM shift Echo in early this AM to complete study. Pt is resting in bed at present. No c/o pain, numbness to L side is resolving.
[2020-12-06] MEDS: DULOXETINE 20 MG CAPSULE 40 MG PO (09:40)
[2020-12-06] MEDS: lisinopriL 10 MG TABLET PO (10:30)
[2020-12-06] MEDS: SODIUM CHLORIDE 0.9% FLUSH 10 ML IV (11:41)
[2020-12-06] MEDS: ENOXAPARIN 40 MG/0.4 ML SYRINGE SUBCUT (11:42)
--- NOTE | 2020-12-06 11:51 | CM.DANOTE ---
Patient is a 40 yo female who was admitted on 12/05/20 for Chest Pain/Numbness. Pt has BX FED for insurance and her PCP is not listed. EMR was reviewed. Per MD, pt with hx of anxiety and MRI results negative, Echo normal, and to have a stress test today at 1230 and possible d/c home today pending results. Currently her neuropathy on her left is from unknown etiology and recommendation will likely be to follow up with neurologist outpt. SW met bedside with pt and explained role and pt confirms she lives at home with her and children and is independent at baseline and drives. Pt has no hospital admission hx and denies any other supportive services needed. Pt states spouse can transport at d/c and she is hopeful to d/c home today if stable. Pt's symptoms seem to have resolved accept for her left sided numbness. Plan: SW to follow after stress test results towards confirming pt safe for d/c home with spouse and family and any further identified needs. ANDREA Zamora Discharge Planning/Care Management CM Discharge Assessment Start: 12/06/20 11:49 Freq: Status: Active Protocol: Document 12/06/20 11:49 BF (Rec: 12/06/20 11:51 BF [id number]) Discharge Planning Assessment Assigned Biomedical Analytical Scientist ANDREA Cameron DPOA/Assigned Designee Name informally spouse Trevor Contact Information [phone] Advance Directives? No Advance Directives on File No History Provided By Patient,Medical Record Has Patient been admitted in last 30 No days? Prior Living Arrangements House Household Members spouse,children Type of transporation used prior to Drives own vehicle admit Independent with ADL's Yes Is patient alert and oriented? Yes Caregiver for Another Yes: children at home Barriers to Discharge No Discharge Plan Home Transportation Arrangement Spouse can transport at d/c. Referrals Initiated None needed Whiteboard Updated in Patient Room with Yes name and ext. # of Biomedical Analytical Scientist Review Status In Process Please Provide Date Initial DC 12/06/20 Assessment Was Performed Next Review Type Continued Stay Review
--- NOTE | 2020-12-06 13:20 | PM.TREADMILL ---
Cardiac Stress Test Report Referral & Results Date Patient Seen: 12/06/20 Time Patient Seen: 13:20 Requesting provider: Fredis Carballo Indication: chest pain Rest ECG: Sinus rhythm with T wave inversion in Lead III Procedure Note: Standard Ethan protocol, 9:01; 8.9 METS Fair exercise capacity, ADRIANA 0% Normal hemodynamic response to exercise No chest pain or anginal symptoms No significant ST changes at peak exercise No ectopy Impression: Normal exercise stress test Please note: Actual ECG tracings can be found in the PACS system.
--- NOTE | 2020-12-06 17:08 | P.DS_ITS ---
History of Present Illness History of Present Illness Date Patient Seen: 12/06/20 Time Patient Seen: 17:08 Chief complaint: LEFT SIDE NUMBNESS CHEST PAIN Narrative: This is a 40-year-old female with a past history of tobacco use (0.5 ppd x 25 years) and anxiety who presented with left-sided numbness and chest pain. Patient states that she had left-sided numbness starting a couple of days ago. It started in the palm of her hand and then traveled up her arm. She reports decreased sensation and tingling. The following day it involved her entire left side including her chest and back as well as her legs. She notes it improves at the midline. She reports no pain, no trauma and no weakness. She denies any palpitations, headache, vision changes, fevers, chills, slurred speech, falls, dizziness, urinary or bladder incontinence, nausea, vomiting, diaphoresis. Starting at around 1:00 p.m. today she developed a substernal chest pressure, 3 to 4/10, with later migration into her upper chest and neck. This resolved with nitroglycerin in the emergency room. She actually did a a heavy workout this morning and denies any exertional symptoms or chest pain. She has no orthopnea, lower extremity edema. Nothing seems to make her symptoms better or worse other than the nitro in the ER for chest pain. In the emergency room, the patient was hypertensive with a blood pressure of 190/110, this improved without medications to the 140s systolic. She was bord mirna tachycardic but the remainder of her vital signs were unremarkable. Initial CBC was unremarkable, she had normal coagulation studies, CMP showed a mild elevation in AST at 41, and mildly elevated CK at 149, but was otherwise unremarkable including a negative troponin and normal TSH at 1.3. COVID-[address] was unremarkable. Chest x-ray was unremarkable. CT angiogram of her chest and abdomen pelvis showed no acute abnormalities. EKG showed nonspecific T-wave inversion in leads III and AVF. Prior to arrival on the floor patient went for her MRI stroke protocol which also showed no acute abnormalities. Discharge Providers Provider Date of admission: 12/05/20 16:24 Discharge Date: 12/06/20 Discharge provider: Fredis Carballo DO Summary Hospital Course Discharge Diagnosis: 1. Chest pain, acute, present on admission, improved 2. Left sided numbness, acute, present on admission, improved 3. Essential hypertension 4. Tobacco use, present on admission 5. Anxiety, chronic Hospital Course: This is a 40-year-old female with a past history of tobacco use (0.5 ppd x 25 years) and anxiety who presented with left-sided numbness and chest pain, admitted to Medicine for further observation and evaluation of these presenting symptoms. For her chest pain, she had a CT angio which was negative for acute dissection, HEART score was 4 based on her presenting history, EKG with inferior T-wave inversions, and multiple risk factors including obesity, hypertension, and smoking. Echocardiogram was unremarkable and nuclear stress testing was low risk for ischemia. Troponins were negative. Telemetry showed no acute events. She had no recurrence of symptoms and she was started on low- dose lisinopril with improvement in her blood pressure. Symptoms may have been related to GERD, anxiety, or elevated blood pressure on admission. For her left-sided numbness, the etiology is not entirely clear at this time. Differentials include atypical reaction to hypertension, peripheral neuropathy, or some meditation. She had an MRI which did not show any acute infarcts. Patient was encouraged to stop smoking and other than the addition of lisinopril no other medication changes are recommended at this time. A do recommend that she follow-up with her primary care provider in the next 2 weeks for follow-up of her neurological symptoms and possible referral to Neurology, as well as follow-up with her blood pressures. Patient also had an A1c of 4.8, TSH was unremarkable, and she did have elevated cholesterol but defer decision making on statin therapy to primary care provider this time. Status at Discharge Cognitive/behavioral status at discharge: oriented Functional status at discharge: independent ambulation Overall status at discharge: patient is back to baseline Exam Vital Signs (past 8 hours): - 12/06/20 12:00 12/06/20 13:00 12/06/20 15:10 Temperature 97.2 F L 98.8 F Pulse Rate 82 85 Respiratory Rate 17 16 Blood Pressure 138/82 122/76 Pulse Oximetry 97 99 100 Oxygen Delivery Method Room Air Oxygen Flow Rate 0 Narrative Exam Narrative: GENERAL APPEARANCE: Well developed, well nourished, in no acute distress. SKIN: Inspection of the skin reveals no rashes, ulcerations or petechiae. HEENT: Normocephalic atraumatic, extraocular muscles are intact, oropharynx is clear and mucous membranes are moist, neck is supple without adenopathy NECK: Supple and symmetric. There was no thyroid enlargement, and no tenderness, or masses were felt. CHEST: Normal AP diameter and normal contour without any kyphoscoliosis. LUNGS: Auscultation of the lungs revealed no wheezes, rhonchi, or rales. CARDIOVASCULAR: There was a regular rate and rhythm without any murmurs, gallops, rubs. Peripheral pulses were 2+ and symmetric. ABDOMEN: Soft, nondistended, and nontender. MUSCULOSKELETAL: There was no tenderness or effusions noted. Muscle strength and tone were normal. EXTREMITIES: No cyanosis, clubbing or edema. NEUROLOGIC: Alert and oriented x 3. Normal affect. Strength is +5/5 in the Upper Extremities and Lower Extremities Bilaterally. Still with diminished subjective sensation, but less so today she reports. Objective Labs Result Diagrams: 12/06/20 05:03 12/06/20 05:03 Labs: Laboratory Results - last 24 hr 12/05/20 12/05/20 12/05/20 13:10 13:10 13:10 WBC RBC Hgb Hct MCV MCH MCHC RDW Plt Count Neut % (Auto) Lymph % (Auto) [place] % (Auto) Eos % (Auto) Baso % (Auto) Neut # (Auto) Lymph # (Auto) [place] # (Auto) Eos # (Auto) Baso # (Auto) Sodium Potassium Chloride Carbon Dioxide BUN Creatinine Estimated GFR BUN/Creatinine Ratio Glucose Hemoglobin A1c Calcium Phosphorus 2.7 Magnesium 2.3 Troponin I Triglycerides Cholesterol LDL Cholesterol, Calc HDL Cholesterol TSH 1.30 SARS-CoV-2 (PCR) 12/05/20 12/05/20 12/06/20 16:34 21:02 05:03 WBC 6.6 RBC 4.85 Hgb 14.3 Hct 41.7 MCV 85.9 MCH 29.4 MCHC 34.2 RDW 13.0 Plt Count 318 Neut % (Auto) 44.1 L Lymph % (Auto) 40.8 H [place] % (Auto) 10.0 Eos % (Auto) 4.4 H Baso % (Auto) 0.7 Neut # (Auto) 2900 Lymph # (Auto) 2700 [place] # (Auto) 700 Eos # (Auto) 300 Baso # (Auto) 0 Sodium Potassium Chloride Carbon Dioxide BUN Creatinine Estimated GFR BUN/Creatinine Ratio Glucose Hemoglobin A1c Calcium Phosphorus Magnesium Troponin I < 0.012 Triglycerides Cholesterol LDL Cholesterol, Calc HDL Cholesterol TSH SARS-CoV-2 (PCR) Negative 12/06/20 12/06/20 05:03 05:03 WBC RBC Hgb Hct MCV MCH MCHC RDW Plt Count Neut % (Auto) Lymph % (Auto) [place] % (Auto) Eos % (Auto) Baso % (Auto) Neut # (Auto) Lymph # (Auto) [place] # (Auto) Eos # (Auto) Baso # (Auto) Sodium 137 Potassium 3.9 Chloride 103 Carbon Dioxide 28 BUN 12 Creatinine 0.85 Estimated GFR > 60.0 BUN/Creatinine Ratio 14.1 Glucose 103 H Hemoglobin A1c 4.8 Calcium 9.4 Phosphorus Magnesium 2.1 Troponin I Triglycerides 254 H Cholesterol 267 H LDL Cholesterol, Calc 182 H HDL Cholesterol 34 L TSH SARS-CoV-2 (PCR) [facility] Medical History (Updated 12/05/20 @ 20:55 by Kayley Valiente RN) Anxiety Surgical History (Updated 12/05/20 @ 18:08 by Fredis Carballo DO) H/O shoulder surgery Family History (Updated 12/05/20 @ 18:08 by Fredis Carballo DO) Father Hyperlipidemia Hypertension Mother Hyperlipidemia Hypertension Social History household members: spouse and children Smoking Status: Current every day smoker Discharge Plan Discharge Plan Patient Disposition: Home Provider Discharge Comment: You were admitted to the hospital with chest pain and numbness and tingling on your left side. You had a normal echocardiogram which is an ultrasound of your heart, and stress testing was deemed low risk for any blockages in your arteries. The cause of your decreased sensation is unclear at this time, I recommend possibly following up with a neurologist if your symptoms continue, but you had an MRI that did not show evidence of stroke here. You also had a negative CT scan of your chest abdomen and pelvis which showed no abnormalities. Your blood pressure was elevated, and this improved with initiation of a small dose of blood pressure medication. Please continue to check her blood pressure at home, and follow-up with your primary care provider within the next 2 weeks to see how your blood pressures are doing. Discharge orders & Medications Prescriptions: New lisinopril 10 mg Tablet 10 mg PO DAILY 30 Days Qty: 30 RF: 0 Continued duloxetine 20 mg capsule,delayed release(DR/EC) 40 mg PO DAILY RF: 0 Diet/Activity/Treatments Diet: Diet as Tolerated Activity: As tolerated Discharge Data Attending Provider: Fredis Carballo VTE Deep Vein Thrombosis/Pulmonary Embolism Present on Admission: No
--- NOTE | 2020-12-06 17:42 | PC.NURSE ---
Patient being discharged home. Tele and IV removed. Discharge instructions given, new prescription for lisinopril sent to [facility]. Patient instructed to follow up with PCP within 2 weeks. Patient is A/Ox4, vitals WNL, no chest pain. Patient has no concerns or questions about discharge.
--- NOTE | 2020-12-06 19:44 | DI.NM.S_ITS ---
DATE OF SERVICE: 12/06/2020 PROCEDURE: Exercise perfusion study. INDICATION: Chest pain with angina, persistent tobacco abuse, high blood pressure, family history of high blood pressure and high cholesterol, some baseline dynamic EKG changes. RADIOPHARMACEUTICAL: 25.1 millicurie technetium-99m Myoview IV was injected at stress. This is exercise stress test study only. CARDIAC STRESS: The patient underwent exercise perfusion study under the supervision of an attending staff. She walked on Ethan protocol for 9 minutes 01 seconds, achieved 94 percent of target heart rate and normal blood pressure response. Baseline EKG revealed sinus rhythm with T-wave inversion in lead L3. During stress, no convincing significant EKG changes seen. No significant arrhythmias seen. No chest pain. Patient felt shortness of breath during exertion. RAW DATA: Breast shadow was seen. Her weight is 235 pounds. GATED STUDY: Stress LV ejection fraction 86 percent without any obvious wall motion abnormalities. Stress end-diastolic volume 71 mL. Lung/heart ratio 0.29, which is within normal limits. MYOCARDIAL PERFUSION: Stress supine images revealed small size, mildly decreased perfusion of base to mid anterior wall, which got improved during prone images suggestive of breast tissue attenuation artifact. No convincing ischemia or infarction pattern seen. CONCLUSION: I will call this study likely a normal myocardial perfusion study with evidence of breast tissue attenuation artifact, which got resolved during prone images. The patient walked on Ethan protocol for about 9 minutes and 01 seconds, achieved 8.9 METs of workload and functional aerobic impairment 0 percent. Normal hemodynamic response. No obvious electrocardiographic changes. Overall, this is a low-risk myocardial perfusion scan. Radha Chu Cookie/nessa doc#: [id number]/job#: [id number] dd: 12/06/2020 16:57:00 dt: 12/06/2020 19:21:00 DICTATING MD/COPIES TO: Baljinder Blue MD COPIES MNE: YULIA;
== END 2020-12-06 17:58 | disposition home or self-care (01) ==
LOC: ED 14:12 → AC 16:25
PROVIDERS: Admitting Provider Internal Medicine; Emergency Provider Emergency Medicine; Referring Provider Emergency Medicine; Visit Provider Internal Medicine
DX: R07.9 Chest pain, unspecified (principal); R20.0 Anesthesia of skin; I10 Essential (primary) hypertension; F17.210 Nicotine dependence, cigarettes, uncomplicated; F41.9 Anxiety disorder, unspecified; Z20.822 Contact with and (suspected) exposure to COVID-19
CPT/HCPCS: 36415; 70450; 70548; 70553; 71045; 71275; 74174; 78451; 80048; 80053; 80061; 82550; 82553; 83036; 83690; 83735; 84100; 84443; 84484; 85025; 85610; 85730; 87635; 93005; 93010; 93017; 93306; 96372; 99284; C9803; G0378; A9502; A9579; J1650

== ENCOUNTER → 2021-10-15 12:00 | Outpatient (CLI) | payer BC, SELFPAY ==
[2020-12-05 17:46] VITALS: BMI 40.3
--- NOTE | 2021-10-15 12:07 | DIET.CONS ---
Dietary Consultation Note Assessment: 41y [address] visit for help with healthy eating. Pt recently dx c preDM (A1c 5.8) and doesn't want DM2, wants to lose some weight as well. Pt reports some reactive hypoglycemia. Stopped eating breakfast cereal because would feel shaky and need to lay down after consuming it. Pt has had success in past, lost 40# with keto diet but gained it all back. Pt has two daughters 8yo (picky eater), and 16yo, also is super picky daughter and would eat pizza and burgers daily if they could, however is getting more adventurous Pt loves soups, salads, vegetables, love not shared by rest of family. Usual Day: works from home, does too kids go to school 8am drinks black coffee all morning (most of a pot) occasionally has an egg c danish muffin and rascon often lasts until dinner otherwise late lunch (leftovers, likes them) often very large then dinner (630pm): (smoked meats per ) with salads often makes batch soup for self for week as kids do not like sugar happens in time between dinner and bedtime (ice cream, cake) likes chocolate if in the house any and all ice cream (dark chocolate, coffee fudge caramel) Pt currently not participating in structured physical activity besides ADLs and farm chores. States she would cry and throw a fit if she had to go to gym. BMI: 40.3 RD Impression: Pt with newly dx preDM (A1c 5.8), BMI 40.3 with no routine structured physical activity concerned about portion sizes with hx unsuccessful dieting (fine on plan, weight gain when off plan). Pts food structure includes fueling with caffeine and staying busy during through noon then having two very large meals with some sugar snacking in the evening. For pt to reverse preDM and support healthy body weight, pt will need to initiate some structured strength training (20 min twice weekly) in addition to ADLs and farm chores as well as build a more regulated and structured eating plan. Eating plan to include small late morning meal, moderate lunch, moderate dinner, small bedtime snack focusing on 30-45g complex CHO per meal. Pt can do 1-4 week cycles of Keto throughout the year to spur weight loss, but always come back to moderate plan while maintaining strength training. Nutrition Diagnosis: altered nutrition related laboratory values r/t undesirable meal timing and physical inactivity aeb A1c 5.8, BMI >40, pt reports overeating two meals per day with ice cream intake most evenings. Interventions: 1. Introduced pt to the hunger scale. Pt to analyze her hunger throughout the day for a few weeks to understand her own hunger and fullness cues to see where we can fit meals and snacks to satisfy her and lower portion sizes. 2. Discussed plate balance- 1/2 plate f/v, 1/4 complex carbs, 1/4 protein. Problem solved commonly consumed meals. 3. Discussed options for weight loss including keto cycling. 4. Expressed importance of regular physical activity to support metabolic rate and lean body mass. EER: 30-45g CHO/meal Monitoring/Evaluations: telehealth f/u in 4w Electronically Signed by: Radha Jones 10/15/21 12:07 Clinical Dietitian [address] [id number]
== END ==
PROVIDERS: PCP Nurse Practitioner Family; Referring Provider Nurse Practitioner Family; Visit Provider Nurse Practitioner Family
DX: R73.03 Prediabetes (principal); E66.9 Obesity, unspecified; Z68.41 Body mass index [BMI] 40.0-44.9, adult; Z71.3 Dietary counseling and surveillance
CPT/HCPCS: 97802

== ENCOUNTER 2022-05-24 10:43 | Emergency (ER) | payer BC, SELFPAY ==
[2020-12-05 17:46] VITALS: BMI 40.3
[2022-05-24] VITALS (10 sets, daily range): BP systolic 138–156; BP diastolic 87–99; PULSE 66–80; RESP 12–21; TEMP 36.4; O2SAT 93–100; BMI 38.0
--- NOTE | 2022-05-24 11:02 | ED.ARRPALP ---
HPI - Arrhythmia/Palpitations General Chief Complaint: Arrhythmia/Palpitations Stated Complaint: heart palpitations 2 days Time Seen by Provider: 05/24/22 10:49 Source: patient Mode of arrival: Ambulatory History of Present Illness HPI narrative: Patient is a 42-year-old female who has a history of hypertension hyperlipidemia but ran out of her medications a few months ago. Presenting today with palpitations. She says she was feeling palpitations last night also for about 10-15 minutes she still felt this morning. While she was having palpitations she was very short of breath but no real chest discomfort. No fever chills nausea vomiting or other symptoms. She states that her watch said her heart rate was anywhere from 60-80. She is currently in normal sinus rhythm. She was admitted to hospital in 2020 for chest pain she had an echocardiogram and an exercise perfusion study. She currently is feeling better. Without any palpitations pain or shortness of breath Related Data Home Medications Medication Instructions Recorded Confirmed duloxetine 20 mg capsule,delayed 40 mg PO DAILY 12/05/20 12/19/20 release Previous Rx's Medication Instructions Recorded lisinopril 10 mg tablet 10 mg PO DAILY #90 tabs 12/19/20 rosuvastatin 5 mg tablet 5 mg PO DAILY #90 tabs 12/19/20 varenicline 0.5 mg (11)-1 mg (42) See Rx Instructions PO PER PKG DIR 12/19/20 tablets in a dose pack ([employer] #53 ea Starting Month Box) lisinopril 10 mg tablet 10 mg PO DAILY #90 tabs 05/24/22 rosuvastatin 5 mg tablet 5 mg PO DAILY #90 tabs 05/24/22 Allergies Allergy/AdvReac Type Severity Reaction Status Date / Time No Known Drug Allergies Allergy Verified 05/24/22 11:00 Review of Systems Review of Systems Narrative: GENERAL: Denies chills, fatigue, malaise, fever, sweats, travel HEENT: Denies sinus pain, ear pain, sore throat, difficulty swallowing, neck pain RESPIRATORY: Denies dyspnea, cough, wheezing, hemoptysis, sputum. CARDIOVASCULAR: See HPI GASTROINTESTINAL: Denies nausea, vomiting, abdominal pain, diarrhea, constipation, melena. : Denies dysuria, frequency, incontinence, hematuria, urinary retention, flank pain. MUSCULOSKELETAL: Denies weakness, joint pain, or bony pain SKIN: No rash, no erythema, no pruritus NEUROLOGIC: Denies weakness, dizziness, headache, numbness, change in speech, confusion PSYCHIATRIC: No concerning psychosocial issues. 12 point review of systems is negative except for those stated above and HPI Patient History Medical History Anxiety Encounter for smoking cessation counseling Essential hypertension (11/2020) Mixed hyperlipidemia (11/2020) Tobacco abuse disorder (1997) Surgical History H/O shoulder surgery Family History Father Hyperlipidemia Hypertension Mother Hyperlipidemia Hypertension Social History household members: spouse and children Smoking Status: Current every day smoker Tobacco: How many years used: 25 quit status: quit date established second hand exposure: No alcohol intake: current (1-3x/week. 1-3 drinks each time. ) substance use type: does not use Smoking Status: Current every day smoker tobacco type: vaping alcohol intake frequency: 0-2 drinks per day Substance Use Type: does not use Exam Initial Vital Signs Initial Vital Signs: Vital Signs Temperature 97.5 F L 05/24/22 10:51 Pulse Rate 80 05/24/22 10:51 Respiratory Rate 14 05/24/22 10:51 Blood Pressure 153/90 H 05/24/22 10:51 Pulse Oximetry 100 05/24/22 10:51 Oxygen Delivery Method 05/24/22 10:51 GENERAL: Alert pleasant 42-year-old female and in no acute distress. HEENT: Head atraumatic,EOMI, pupils reactive, face symmetric, moist mucous membranes CARDIOVASCULAR: Regular rate and rhythm without murmurs, rubs or gallops. RESPIRATORY: Breath sounds equal bilaterally, no wheezes rales or rhonchi. ABDOMEN: Soft, nontender. Normoactive bowel sounds all 4 quadrants. No guarding or rebound. EXTREMITIES: Normal range of motion, no clubbing or edema. Neurovascularly intact NEUROLOGICAL: Alert and oriented x4.Normal gait and speech. SKIN: Warm, dry, no laceration, no petechiae, no rashes or lesions. Course Orders Ordered: ED Orders 05/24/22 11:00 Complete Blood Count AUTO DIFF Stat Comprehensive Metabolic Panel Stat Lipase Stat TSH [Thyroid Stimulating Hormone] Stat Troponin & CK Cardiac Panel Stat 05/24/22 11:03 XR chest 1V Stat 05/24/22 11:05 EKG-12 Lead Stat Vital Signs Vital signs: Vital Signs - 8 hr 05/24/22 10:51 05/24/22 11:10 05/24/22 11:13 Temperature 97.5 F L Pulse Rate 80 72 Respiratory Rate 14 21 Blood Pressure 153/90 H 156/99 H Pulse Oximetry 100 95 Oxygen Delivery Method Room Air 05/24/22 11:13 05/24/22 11:15 05/24/22 11:30 Temperature Pulse Rate 75 73 Respiratory Rate 21 12 Blood Pressure 145/89 H Pulse Oximetry 98 95 Oxygen Delivery Method Room Air 05/24/22 11:30 05/24/22 11:45 05/24/22 12:00 Temperature Pulse Rate 72 74 Respiratory Rate 14 Blood Pressure 138/87 Pulse Oximetry 93 97 Oxygen Delivery Method 05/24/22 12:00 05/24/22 12:15 05/24/22 12:30 Temperature Pulse Rate 70 74 Respiratory Rate 15 15 Blood Pressure 138/92 H Pulse Oximetry 97 96 Oxygen Delivery Method 05/24/22 12:30 05/24/22 12:45 Temperature Pulse Rate 67 66 Respiratory Rate 13 12 Blood Pressure Pulse Oximetry 99 100 Oxygen Delivery Method MDM - Arrhythmia/Palpitations Differential Diagnosis Differential diagnosis: Likely palpitations, anxiety, sinus tachycardia, artial fibrillation, artial flutter, ventricular premature beats, supraventricular tachycardia and ventricular tachycardia Lab Data Result diagrams: 05/24/22 11:00 05/24/22 11:00 Labs: Lab Results 05/24/22 05/24/22 05/24/22 Range/Units 11:00 11:00 11:00 WBC 6.1 (4.5-11.0) X10^3/uL RBC 4.86 (4.0-5.2) X10^6/uL Hgb 14.0 (12.0-16.0) g/dL Hct 41.4 (36-46) % MCV 85.2 (80-100) fL MCH 28.8 (26-34) PG MCHC 33.8 (30-36) % RDW 13.7 (11.6-14.8) % Plt Count 353 (150-400) X10^3/uL Neut % (Auto) 58.2 (50-75) % Lymph % (Auto) 30.8 (25-40) % [place] % (Auto) 8.6 (3-14) % Eos % (Auto) 1.8 L (2-4) % Baso % (Auto) 0.6 (0-2) % Neut # (Auto) 3600 (9973-6784) /uL Lymph # (Auto) 1900 (6803-1970) /uL [place] # (Auto) 500 (0-900) /uL Eos # (Auto) 100 (0-450) /uL Baso # (Auto) 0 (0-100) /uL Sodium 139 (137-145) mmol/L Potassium 3.7 (3.4-5.1) mmol/L Chloride 102 (98-107) mmol/L Carbon Dioxide 25 (22-32) mmol/L BUN 9 (7-17) mg/dL Creatinine 0.79 (0.52-1.04) mg/dL Estimated GFR > 60 (>60) mL/min BUN/Creatinine Ratio 11.4 (6-22) Glucose 100 (70-100) mg/dL Calcium 9.3 (8.4-10.2) mg/dL Total Bilirubin 0.9 (0.2-1.3) mg/dL AST 23 (14-36) IU/L ALT 22 (<35) IU/L Alkaline Phosphatase 64 (38-126) U/L Total Creatine Kinase 88 (30-135) U/L CK-MB (CK-2) TNP CK-MB (CK-2) Rel Index TNP Troponin I < 0.012 (0.01-0.034) ng/mL Total Protein 8.3 H (6.3-8.2) g/dL Albumin 4.6 (3.5-5.0) g/dL Globulin 3.7 (1.7-4.1) g/dL Albumin/Globulin Ratio 1.2 (1.0-2.8) Lipase 116 (23-300) U/L TSH 1.52 (0.47-4.68) uIU/mL Imaging Data Chest x-ray: Radiologist's Impresson: nt: Radha Chu MR#: [id number] : 1980 Acct:[id number] Age/Sex: 42 / F Date of Service: 05/24/22 Loc: ED Accession Number: [id number] ?? Procedure: XR chest 1V Ordering Provider: Jammie Chaney D.O. PROCEDURE:? XR CHEST 1V ? INDICATIONS:? chest pain ? TECHNIQUE:? One view of the chest was acquired.? ? COMPARISON:? [facility], CR, XR CHEST 1V, 12/05/2020, 13:20. ? FINDINGS:? ? Surgical changes and devices:? None.? ? Lungs and pleura:? Lungs are clear.? No pleural effusions or pneumothorax.? ? Mediastinum:? Mediastinal contours appear normal.? Heart size is normal.? ? Bones and chest wall:? No suspicious bony lesions.? Overlying soft tissues appear unremarkable.? ? IMPRESSION:? No acute radiographic abnormality. ? ? Dictated by: Denzel Kam M.D. on 05/24/2022 at 11:30 ? ? ECG Data Interpretation: Normal sinus rhythm rate 66 PI 30 QRS [address] elevation significant T-wave inversion noted in lead 3 which is similar to previous EKGs. Slight Q-wave noted in 1 and aVL also similar to previous MDM Narrative Medical decision making narrative: Patient has had palpitations since last night but no pain. Who been on the monitor no evidence of arrhythmia she is out of her hypertension and hyperlipidemia medications which I will happily refill. At this time I recommend Holter monitor. Coronary artery disease considered however would be very atypical troponin is negative. Discharge Plan Departure Patient Disposition: Home Clinical Impression: Heart palpitations Activity Restrictions/Additional Instructions: *You have been diagnosed with palpitations *What to do: At this time no evidence of the cause of her palpitations. I do recommend a Holter monitor which can be set up with her primary care provider. If able I do recommend monitoring her heart rate at home with a watch or other device *Continue to take medications as directed *Follow up with your primary care provider in 2-3 days or call [phone] *Return to ER if you should have increasing palpitations dizziness lightheadedness chest pain passing heart rate greater than 120 for over 1 hour without exertion [or] any new, worsening or concerning symptoms Prescriptions: New lisinopril 10 mg tablet 10 mg PO DAILY Qty: 90 0RF rosuvastatin 5 mg tablet 5 mg PO DAILY Qty: 90 0RF No Action [employer] Starting Month Box 0.5 mg (11)- 1 mg (42) tablets,dose pack See Rx Instructions PO PER PKG DIR Qty: 53 0RF Rx Instructions: PO PER PKG DIR rosuvastatin 5 mg tablet 5 mg PO DAILY Qty: 90 2RF lisinopril 10 mg tablet 10 mg PO DAILY Qty: 90 3RF duloxetine 20 mg capsule,delayed release(DR/EC) 40 mg PO DAILY Referrals: Mary Bustillo ARNP [Primary Care Provider] - Visit Report Forms: Patient Portal/API
--- NOTE | 2022-05-24 11:03 | DI.RAD.S_ITS ---
PROCEDURE: XR CHEST 1V INDICATIONS: chest pain TECHNIQUE: One view of the chest was acquired. COMPARISON: [facility], CR, XR CHEST 1V, 12/05/2020, 13:20. FINDINGS: Surgical changes and devices: None. Lungs and pleura: Lungs are clear. No pleural effusions or pneumothorax. Mediastinum: Mediastinal contours appear normal. Heart size is normal. Bones and chest wall: No suspicious bony lesions. Overlying soft tissues appear unremarkable. IMPRESSION: No acute radiographic abnormality. Dictated by: Denzel Kam M.D. on 05/24/2022 at 11:30 Approved by: Denzel Kam M.D. on 05/24/2022 at 11:30
[2022-05-24 11:12] LABS: Add Manual Diff / Slide Review NO; Basophils Absolute Auto 0 /uL (0-100); Basophils Percent Auto 0.6 % (0-2); Eosinophils Absolute Auto 100 /uL (0-450); Eosinophils Percent Auto 1.8 % (2-4); Hematocrit 41.4 % (36-46); Lymphocytes Absolute Auto 1900 /uL (1100-4500); Lymphocytes Percent Auto 30.8 % (25-40); Mean Corpuscular HGB Conc 33.8 % (30-36); Mean Corpuscular Hemoglobin 28.8 PG (26-34); Mean Corpuscular Volume 85.2 fL (80-100); Monocytes Absolute Auto 500 /uL (0-900); Monocytes Percent Auto 8.6 % (3-14); Neutrophils Absolute Auto 3600 /uL (1500-7000); Neutrophils Percent Auto 58.2 % (50-75); Platelet Count 353 X10^3/uL (150-400); Red Blood Cell Count 4.86 X10^6/uL (4.0-5.2); Red Cell Distribution Width 13.7 % (11.6-14.8); White Blood Cell Count 6.1 X10^3/uL (4.5-11.0)
[2022-05-24 11:23] LABS: Alanine Aminotransferase 22 IU/L (<35); Albumin 4.6 g/dL (3.5-5.0); Albumin Globulin Ratio 1.2 (1.0-2.8); Alkaline Phosphatase 64 U/L (38-126); Aspartate Aminotransferase 23 IU/L (14-36); BUN Creatinine Ratio 11.4 (6-22); Bilirubin Total 0.9 mg/dL (0.2-1.3); Blood Urea Nitrogen 9 mg/dL (7-17); Calcium 9.3 mg/dL (8.4-10.2); Carbon Dioxide 25 mmol/L (22-32); Chloride 102 mmol/L (98-107); Creatine Kinase 88 U/L (30-135); Estimated Glomerular Filt Rate > 60 mL/min (>60); Globulin 3.7 g/dL (1.7-4.1); Glucose 100 mg/dL (70-100); HEMOLYSIS < 15 (0-50); Lipase 116 U/L (23-300); Potassium 3.7 mmol/L (3.4-5.1); Sodium 139 mmol/L (137-145); Total Protein 8.3 g/dL (6.3-8.2)
[2022-05-24 11:35] LABS: Troponin I < 0.012 ng/mL (0.01-0.034)
[2022-05-24 11:54] LABS: Thyroid Stimulating Hormone 1.52 uIU/mL (0.47-4.68)
== END 2022-05-24 13:02 | disposition home or self-care (01) ==
PROVIDERS: Emergency Provider Emergency Medicine; PCP Nurse Practitioner Family
DX: R00.2 Palpitations (principal); R07.9 Chest pain, unspecified
CPT/HCPCS: 36415; 71045; 80053; 82550; 83690; 84443; 84484; 85025; 93005; 99283; 99284

== ENCOUNTER → 2023-02-17 09:05 | Outpatient (CLI) | payer BC, SELFPAY ==
[2020-12-05 17:46] VITALS: BMI 40.3
[2023-02-17 10:12] LABS: Hematocrit 39.1 % (36-46); Hemoglobin 13.7 g/dL (12.0-16.0); Mean Corpuscular HGB Conc 34.9 % (30-36); Mean Corpuscular Hemoglobin 29.7 PG (26-34); Mean Corpuscular Volume 85.2 fL (80-100); Platelet Count 346 X10^3/uL (150-400); Red Cell Distribution Width 13.4 % (11.6-14.8); White Blood Cell Count 4.8 X10^3/uL (4.5-11.0)
[2023-02-17 10:35] LABS: BUN Creatinine Ratio 18.8 (6-22); Blood Urea Nitrogen 15 mg/dL (7-17); Calcium 9.7 mg/dL (8.4-10.2); Carbon Dioxide 25 mmol/L (22-32); Chloride 102 mmol/L (98-107); Cholesterol 255 mg/dL (140-199); Estimated Glomerular Filt Rate > 60 mL/min (>60); Glucose 93 mg/dL (70-100); HDL Cholesterol 41 mg/dL (40-60); HEMOLYSIS < 15 (0-50); LDL Cholesterol Calculated 191 mg/dL (<100); Potassium 4.5 mmol/L (3.4-5.1); Sodium 136 mmol/L (137-145); Triglycerides 113 mg/dL (35-150)
[2023-02-17 10:51] LABS: Vitamin D 25 Hydroxy (D3) 34.6 ng/mL (30.0-100.0)
[2023-02-17 13:51] LABS: Creatinine Urine Random 54.4 mg/dL
[2023-02-17 13:56] LABS: Microalbumin Urine Random < 0.6 mg/dL (0-1.6)
== END ==
PROVIDERS: PCP Family Medicine; Referring Provider Family Medicine; Visit Provider Family Medicine
DX: E55.9 Vitamin D deficiency, unspecified (principal); E78.2 Mixed hyperlipidemia; I10 Essential (primary) hypertension
CPT/HCPCS: 36415; 80048; 80061; 82043; 82306; 82570; 85027

== ENCOUNTER → 2023-09-08 08:28 | Outpatient (CLI) | payer BC, SELFPAY ==
[2020-12-05 17:46] VITALS: BMI 40.3
--- NOTE | 2023-09-08 08:28 | DI.MG.S_ITS ---
BILATERAL DIGITAL SCREENING MAMMOGRAM 3D/2D WITH CAD: 09/08/2023 CLINICAL: Routine screening. Family history of breast cancer. Baseline exam. No prior exams were available for comparison. There are scattered areas of fibroglandular density in both breasts (category b / 25%-50% glandular tissue). Current study was also evaluated with a Computer Aided Detection (CAD) system. No significant masses, calcifications, or other findings are seen in either breast. IMPRESSION: NEGATIVE There is no mammographic evidence of malignancy. A 1 year screening mammogram is recommended. Based on the Tyrer Cuzick model (a risk assessment model) the patient's lifetime risk is 7.7% and her 10 year risk is 1.1%. According to the ACR, ACS, and NCCN guidelines, an annual breast MRI exam along with mammogram is recommended if the patient's lifetime risk is 20% or greater. This exam was interpreted at Station ID: [id number]. NOTE: For mammograms, a report in lay terms will be sent to the patient. Approximately 15% of breast malignancies will not be visualized mammographically. In the management of a palpable breast mass, a negative mammogram must not discourage biopsy of a clinically suspicious lesion. Electronically Signed By: Janel [email or web address]:09/08/2023 16:50:57 letter sent: Normal Exam ACR BI-RADS Category 1: Negative 3341F
== END ==
LOC: MAMMO 08:28
PROVIDERS: PCP Family Medicine; Referring Provider Family Medicine; Visit Provider Family Medicine
DX: Z12.31 Encounter for screening mammogram for malignant neoplasm of breast (principal); Z80.3 Family history of malignant neoplasm of breast; R92.323 Mammographic fibroglandular density, bilateral breasts
CPT/HCPCS: 77063; 77067

== ENCOUNTER → 2024-02-20 09:05 | Outpatient (CLI) | payer BC, SELFPAY ==
[2020-12-05 17:46] VITALS: BMI 40.3
[2024-02-20 09:58] LABS: Add Manual Diff / Slide Review NO; Basophils Absolute Auto 0 /uL (0-100); Basophils Percent Auto 0.9 % (0-2); Eosinophils Absolute Auto 100 /uL (0-450); Eosinophils Percent Auto 2.3 % (2-4); Hematocrit 39.3 % (36-46); Hemoglobin 13.4 g/dL (12.0-16.0); Lymphocytes Absolute Auto 1900 /uL (1100-4500); Lymphocytes Percent Auto 37.7 % (25-40); Mean Corpuscular Hemoglobin 29.3 PG (26-34); Mean Corpuscular Volume 86.3 fL (80-100); Monocytes Absolute Auto 500 /uL (0-900); Monocytes Percent Auto 9.1 % (3-14); Neutrophils Absolute Auto 2600 /uL (1500-7000); Platelet Count 352 X10^3/uL (150-400); Red Blood Cell Count 4.55 X10^6/uL (4.0-5.2); Red Cell Distribution Width 12.7 % (11.6-14.8); White Blood Cell Count 5.1 X10^3/uL (4.5-11.0)
[2024-02-20 10:13] LABS: Alanine Aminotransferase 19 IU/L (<35); Albumin 4.5 g/dL (3.5-5.0); Albumin Globulin Ratio 1.6 (1.0-2.8); Alkaline Phosphatase 55 U/L (38-126); Aspartate Aminotransferase 23 IU/L (14-36); BUN Creatinine Ratio 15.7 (6-22); Bilirubin Total 0.6 mg/dL (0.2-1.3); Blood Urea Nitrogen 13 mg/dL (7-17); Carbon Dioxide 24 mmol/L (22-32); Cholesterol 204 mg/dL (140-199); Estimated Glomerular Filt Rate > 60 mL/min (>60); Globulin 2.8 g/dL (1.7-4.1); Glucose 102 mg/dL (70-100); HEMOLYSIS < 15 (0-50); Total Protein 7.3 g/dL (6.3-8.2); Triglycerides 115 mg/dL (35-150)
[2024-02-20 10:16] LABS: Calcium 9.4 mg/dL (8.4-10.2); Chloride 106 mmol/L (98-107); HDL Cholesterol 41 mg/dL (40-60); LDL Cholesterol Calculated 140 mg/dL (<100); Potassium 4.5 mmol/L (3.4-5.1); Sodium 138 mmol/L (137-145)
[2024-02-20 10:17] LABS: High Sensitivity CRP - Cardiac < 0.3 mg/L (1.0-3.0)
[2024-02-20 11:18] LABS: Creatinine Urine Random 68.89 mg/dL
[2024-02-20 11:28] LABS: Microalbumin Urine Random < 0.6 mg/dL (0-1.6)
== END ==
PROVIDERS: PCP Family Medicine; Referring Provider Family Medicine; Visit Provider Family Medicine
DX: E55.9 Vitamin D deficiency, unspecified (principal); I10 Essential (primary) hypertension; E78.2 Mixed hyperlipidemia
CPT/HCPCS: 36415; 80053; 80061; 82043; 82570; 85025; 86140